=== PATIENT | male | born 1990 | race Caucasian/White ===

== ENCOUNTER 2016-06-06 13:01 | Emergency (ER) | payer MEDICAID ==
[~2016-06-06] VITALS: Ht 172.7 cm; Wt 104.3 kg
[2016-06-06 13:17] VITALS: BP 134/83
--- NOTE | 2016-06-06 14:16 | NUR ---
Patient ambulated to bed 01.
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
--- NOTE | 2016-06-06 14:53 | NUR ---
Dr. Sr evaluating patient at bedside.
--- NOTE | 2016-06-06 15:40 | NUR ---
Patient discharged with v/s stable. Written and verbal after care instructions given and explained. Patient alert, oriented and verbalized understanding of instructions. Ambulatory with steady gait. All questions addressed prior to discharge. ID band removed. Patient advised to follow up with PMD. Rx of TAMIFLU AND ZOFRAN given. Patient educated on indication of medication including possible reaction and side effects. Opportunity to ask questions provided and answered.ENCOURAGED PT TO INCREASE FLUID INTAKE AND PT AGREED TO IT.
[2016-06-06 15:41] VITALS: BP 134/78
--- NOTE | 2016-06-06 18:42 | NUR ---
ADDENDUM: STREP. A NEGATIVE PER NICHOLAS FROM THE LAB. ERMD MADE AWARE
== END 2016-06-06 15:40 | disposition home or self-care (01) ==
LOC: MED 13:01
DX: B34.9 Viral infection, unspecified (principal); J02.9 Acute pharyngitis, unspecified; R03.0 Elevated blood-pressure reading, without diagnosis of hypertension

== ENCOUNTER 2016-08-21 08:00 | Emergency (ER) | payer MEDICAID ==
[~2016-08-21] VITALS: Ht 170.2 cm; Wt 100.7 kg
--- NOTE | 2016-08-21 08:07 | NUR ---
Patient ambulated to bed 04.
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
[2016-08-21 08:12] VITALS: BP 130/73
--- NOTE | 2016-08-21 08:34 | NUR ---
Dr. Gordon evaluating patient at bedside.
--- NOTE | 2016-08-21 09:59 | NUR ---
Patient discharged with v/s stable. Written and verbal after care instructions given and explained.Patient alert, oriented and verbalized understanding of instructions. Ambulatory with steady gait. All questions addressed prior to discharge. ID band removed. Patient advised to follow up with PMD. Rx of KEFLEX AND TRAMADOL given. Patient educated on indication of medication including possible reaction and side effects. Opportunity to ask questions provided and answered.
[2016-08-21 10:00] VITALS: BP 102/57
== END 2016-08-21 09:59 | disposition home or self-care (01) ==
LOC: MED 08:00
DX: H92.02 Otalgia, left ear (principal); H92.12 Otorrhea, left ear

== ENCOUNTER 2017-12-13 15:13 | Emergency (ER) | payer MEDICAID ==
[~2017-12-13] VITALS: Ht 172.7 cm; Wt 106.8 kg
[2017-12-13 15:29] VITALS: BP 133/87
[2017-12-13] MEDS ORDERED: KETOROLAC 30 MG/ML VIAL IM ONE (17:00)
[2017-12-13 17:17] VITALS: BP 127/88
== END 2017-12-13 17:17 | disposition home or self-care (01) ==
LOC: MED 15:13
DX: G56.01 Carpal tunnel syndrome, right upper limb (principal)
CPT/HCPCS: 29125; 96372; 99283; J1885

== ENCOUNTER 2023-03-19 14:40 | Emergency (ER) | payer MEDICAID ==
[~2023-03-19] VITALS: Ht 175.3 cm; Wt 108.0 kg
[2023-03-19 15:39] VITALS: BP 139/81; PULSE 84; RESP 17; TEMP 97.4; O2SAT 98
[2023-03-19] MEDS ORDERED: IBUP-2213 PO (18:32)
== END 2023-03-19 18:53 | disposition home or self-care (01) ==
LOC: MED 14:40
DX: S80.01XA Contusion of right knee, initial encounter (principal); W22.8XXA Striking against or struck by other objects, initial encounter; Y93.02 Activity, running; Y92.89 Other specified places as the place of occurrence of the external cause; Y99.8 Other external cause status
CPT/HCPCS: 73562; 99283